=== PATIENT | male | born 1995 | race Two or more races ===

== ENCOUNTER 2022-03-24 09:14 | Emergency (ER) | payer OTHER ==
[2022-03-24 09:22] VITALS: BP 109/59; PULSE 69; RESP 20; TEMP 98.5; BMI 22.9
[2022-03-24] MEDS ORDERED: DIPHTH,PERTUSS(ACELL),TET 0.5 ML DISP.SYRIN IM ONE ×2 (09:54→10:08)
== END 2022-03-24 10:33 | disposition home or self-care (01) ==
LOC: JERFT 09:14
PROC: 3E0234Z Introduction of Serum, Toxoid and Vaccine into Muscle, Percutaneous Approach (ICD-10-PCS; principal; 2022-03-24)
DX: S91.332A Puncture wound without foreign body, left foot, initial encounter (principal); W45.0XXA Nail entering through skin, initial encounter
CPT/HCPCS: 90715; 99283-25